=== PATIENT | female | born 1940 | race Caucasian/White ===

== ENCOUNTER → 2020-06-24 13:33 | Outpatient (CLI) | payer MEDICARE, SELFPAY ==
[2020-06-25 20:37] LABS: COVID19 Sendout Not Detected (Not Detect)
== END ==
PROVIDERS: Visit Provider Nurse Practitioner
DX: Z11.59 Encounter for screening for other viral diseases (principal)
CPT/HCPCS: 87635

== ENCOUNTER 2020-06-27 13:25 | Day surgery (SDC) | payer MEDICARE, SELFPAY ==
[2020-06-13 13:46] VITALS: BMI 26.7
[2020-06-27] VITALS (13 sets, daily range): BP systolic 105–175; BP diastolic 38–89; PULSE 73–89; RESP 14–20; TEMP 36–36.9; O2SAT 91–97; BMI 26.4
--- NOTE | 2020-06-27 | DI.RAD.S_ITS ---
PROCEDURE: XR KNEE LT 1TO2V INDICATIONS: LEFT TOTAL KNEE TECHNIQUE: Two views of the knee acquired. COMPARISON: [facility] LUCITA Alvarado, XR KNEE ARTHRITIC SERIES LT, 10/25/2019, 16:22. FINDINGS: Bones: Patient is status post knee joint arthroplasty. Hardware components are in expected positions. Visualized bony structures are intact. Soft tissues: Overlying postoperative changes are noted. IMPRESSION: 1. Expected postsurgical changes status post left knee arthroplasty. Dictated by: Grayson Washington M.D. on 06/27/2020 at 17:53 Approved by: Grayson Washington M.D. on 06/27/2020 at 17:53
[2020-06-27] MEDS: ACETAMINOPHEN 325 MG TABLET 975 MG PO (13:55)
[2020-06-27] MEDS: CELECOXIB 200 MG CAPSULE PO (13:56)
[2020-06-27] MEDS: GABAPENTIN 600 MG TABLET PO (13:56)
[2020-06-27] MEDS: LACTATED RINGERS 1,000 ML 42 ML IV (14:17)
--- NOTE | 2020-06-27 15:02 | P.OP_ITS ---
Operative Date/Time/Diagnoses Date of procedure: 06/27/20 Time of procedure: 17:02 Pre-op diagnosis: Left knee arthritis Post-op diagnosis: same Procedure & Clinicians Procedure: Left total knee arthroplasty Same procedure as scheduled: Yes Indications: The patient presents today for total knee arthroplasty after failure of conservative treatment. The nature of the procedure including the risks and benefits, alternatives, postoperative course and expected outcome were discussed and all questions answered. Consent was obtained. Operative site confirmed and marked. Surgeon: Grayson Carter Drying And Winding Supervisor: Ayaz Hayes Anesthesia Type: General, Spinal and Local Operative Notes Closure Type: primary Specimen(s): none sent Prosthetic devices, grafts, tissues, transplants, or devices: [facility] BCS: 4 femoral component, 3 tibial component, 9 mm BCS polyethylene tray and 32 x 9 mm round patella Applied: implant(s) Estimated Blood Loss (mL): 5 Tourniquet time (min): 46 Procedure in detail: The patient was taken to the operative suite and placed under anesthesia. The patient was given prophylactic antibiotics prior to surgery. The patient was also given tranexamic acid, 1 g, just prior to surgery for postoperative hemostasis. The lateral knee was prepped and the joint injected with 20 mL of 1% Lidocaine with epinephrine. The knee was then prepped and draped in usual sterile fashion. The leg was exsanguinated with an Esmarch dressing and the tourniquet raised to 250 torr. A 15 cm anterior incision was made. Next a medial trivector arthrotomy was made. The extensor mechanism was marked to ensure accurate repair. Initial exposing dissection was carried out medially and laterally. The knee was then flexed and the intramedullary femoral guide jasmin placed. The distal femoral cut was made in 6? of valgus at the +0 position. The femoral size was measured and the appropriate cutting block was then placed and the anterior, posterior and chamfer cuts made. The intramedullary tibial alignment jasmin was then placed. The guide was set to remove approximately 10 mm from the less affected medial side. The proximal tibial cut was then made with an oscillating saw. All meniscus and bony debris was then removed. Posterior femoral osteophytes removed with a curved osteotome. Flexion extension gaps were checked. There was still some mild tightness laterally. This was corrected releasing the lateral capsule in a pie crust technique with a 15 blade. The soft tissues were then injected with a combination of 20 mL of half percent Marcaine with epinephrine and 20 mL of Exparel. The trial components were then placed. The knee was then extended and the patellar thickness was measured and a cut made removing approximately 9 mm of bone. The patella was then sized and drilled. Some excess lateral bone was excised and the patellofemoral ligament released. The knee went into full extension and flexion beyond 130?. There was excellent medial-lateral balance throughout motion. Patellar tracking was excellent. The trial components were removed and the knee was cleansed with Pulsavac irrigation and dried. The final components were cemented with high viscosity vacuum mixed bone cement with antibiotics. The joint was filled with a dilute Betadine solution. The knee was held in extension and the patellar clamped until the cement was adequately cured. The knee was then irrigated. The extensor mechanism was closed with 5 interrupted #1 Vicryl sutures and a running Quill suture at approximately 90 degrees of flexion. The joint was then injected with a combination of 1 g of tranexamic acid and 20 mL of quarter percent Marcaine with epinephrine. The subcutaneous tissue was closed with 2 0 Vicryl. The skin was closed with absorbable subcuticular sutures and surgical adhesive. An Aquacel dressing and Wilner wrap were then applied. The patient tolerated the procedure well and was returned to recovery room in good condition. Complications: none Post-operative Condition: stable Disposition: PACU Plan for aftercare: [facility] Protocol.
--- NOTE | 2020-06-27 15:02 | PM.PREOP ---
Pre-operative Note COVID-19 COVID-19 status: Negative Result date/Date tested (Pos, Neg/Pending): 06/24/20 Interval Note History & Physical reviewed/Exam performed by Physician: Yes Changes to H&P: No
[2020-06-27] MEDS: CEFAZOLIN 2 GM/100 ML FROZ.PIGGY IV (15:55)
[2020-06-27] MEDS: LIDOCAINE 1% W/EPI 20 ML INJ (16:01)
[2020-06-27] MEDS: TRANEXAMIC ACID 1,000 MG VIAL 1000 MG IV (16:01)
--- NOTE | 2020-06-27 16:15 | SUR.OPER ---
Supine on padded OR bed. Pillow under head, arms secured on padded armboards <90 degree abduction. Safety belt across torso. Non-operative leg secured with tape over blanket over lower leg. Operative leg secured in DeMayo/Lane positioner. Foam padded brace at thigh of operative leg.
[2020-06-27] MEDS: BUPIVACAINE 0.25% W/ EPI (PF) 40 ML, BUPIVACAINE LIPOSOME 266 MG, SODIUM CHLORIDE 0.9% ... INJ (16:28)
[2020-06-27] MEDS: BUPIVACAINE 0.25% W/ EPI (PF) 20 ML, TRANEXAMIC ACID 1,000 MG, SODIUM CHLORIDE 0.9% 10 ML INJ (16:29)
[2020-06-27] MEDS: SODIUM CHLORIDE IRRIG SOLUTION 250 ML, POVIDONE-IODINE SPONGE STICKS 1 APPLIC IRR (16:31)
--- NOTE | 2020-06-27 17:55 | SUR.PHASEI ---
Patient tolerating po. Denies pain. Dermatones at thigh level.
[2020-06-27] MEDS: LACTATED RINGERS 1,000 ML 100 ML IV (18:44)
--- NOTE | 2020-06-27 20:02 | PC.NURSE ---
Addendum entered by Nga Metcalf R.N. 06/27/20 21:48: Pt reports sensation increasing to LLE. Able to stand and ambulate better with this toileting upon commode than previously. Medicated for pain 2/10 to LLE. Ice to site upon return to bed. No change in neurovascular status this shift. Original Note: 1820 Pt to room 203 wide awake and conversant from PACU. Denies pain to LLE and denies nausea. Pt's daughter meets pt in room. Pt denies sensation to BL LE's, but is able to wiggle toes R > L. Equally warm and pink extremities with palpable pedal pulses BL. BL calf scd's in place. Wilner wrap to left knee is dry and intact with ice to site. Up to commode with two staff members to assist as pt has little sensation to LLE. Able to void.
[2020-06-27] MEDS: ASPIRIN EC 81 MG TABLET PO (20:49)
[2020-06-27] MEDS: IBUPROFEN 400 MG TABLET PO (20:49)
[2020-06-27] MEDS: DOCUSATE 100 MG CAPSULE PO (20:49)
[2020-06-27] MEDS: GABAPENTIN 300 MG CAPSULE PO (20:49)
[2020-06-27] MEDS: OXYCODONE IR 5 MG TABLET PO ×2 (20:50→23:22)
[2020-06-27] MEDS: ACETAMINOPHEN 325 MG TABLET 650 MG PO (20:50)
[2020-06-27] MEDS: ATORVASTATIN 20 MG TABLET 40 MG PO (20:50)
[2020-06-28] MEDS: IBUPROFEN 400 MG TABLET PO ×3 (00:09→08:05)
[2020-06-28] MEDS: CEFAZOLIN 2 GM/100 ML FROZ.PIGGY IV ×2 (00:09→08:04)
[2020-06-28 05:27] VITALS: BP 141/83; PULSE 69; RESP 16; TEMP 36.7; O2SAT 93
[2020-06-28 06:10] LABS: Hematocrit 34.3 % (36-46); Hemoglobin 11.7 g/dL (12.0-16.0)
--- NOTE | 2020-06-28 06:41 | PM.PNPO.1 ---
Subjective Subjective Date Patient Seen: 06/28/20 Time Patient Seen: 07:10 Interval history: The patient is progressing well. Pain is well controlled. Feels ready for discharge today. Exam Vital Signs (past 8 hours): - 06/27/20 23:00 06/28/20 05:27 Temperature 98.4 F 98.0 F Pulse Rate 83 69 Respiratory Rate 16 16 Blood Pressure 157/77 H 141/83 H Pulse Oximetry 94 93 Oxygen Delivery Method Room Air Oxygen Flow Rate 0 Narrative Exam Narrative: The dressing is intact. There is expected swelling. The leg is neurovascularly intact. Objective Labs Result Diagrams: 06/28/20 05:55 Labs: Laboratory Results - last 24 hr 06/28/20 05:55 Hgb 11.7 L Hct 34.3 L Assessment & Plan Post-op Postoperative Procedures: Procedures Operation Date: 06/27/20 14:45 Actual Procedures Side Surgeon p Total Knee Arthroplasty Left Grayson Carter MD Postoperative day: 1 Postoperative plan narrative: The patient is progressing as expected postop day 1 total knee arthroplasty. Will discharge to home today. [facility] Protocol. Daily knee range of motion exercises at home. Will start physical therapy within the next week. May leave dressing on for 7-14 days if intact. May shower over dressing. Follow up in 2 weeks. Time Spent With Patient Time with patient: less than 15 minutes
[2020-06-28 07:00] VITALS: BP 125/81; PULSE 67; RESP 18; TEMP 36.2; O2SAT 92
[2020-06-28] MEDS: GABAPENTIN 400 MG CAPSULE 800 MG PO (08:04)
[2020-06-28] MEDS: ACETAMINOPHEN 325 MG TABLET 650 MG PO (08:04)
[2020-06-28] MEDS: PANTOPRAZOLE 20 MG TABLET PO (08:05)
[2020-06-28] MEDS: DOCUSATE 100 MG CAPSULE PO (08:05)
[2020-06-28] MEDS: LOSARTAN 50 MG TABLET PO (08:05)
[2020-06-28] MEDS: ASPIRIN EC 81 MG TABLET PO (08:05)
--- NOTE | 2020-06-28 08:50 | PT.IIE ---
Current Diagnoses Unilateral primary osteoarthritis, left knee (06/27/20) Surgery Performed Operation Date: 06/27/20 14:45 Actual Procedures p Total Knee Arthroplasty(Left) - Grayson Carter MD Surgical History (Last Updated 06/13/20 @ 14:18 by Thania Alicea, RN) History of bilateral tubal ligation (Acute) History of hysterectomy (Acute) Hx of bilateral cataract extraction (Acute) Hx of hammer toe correction (Acute 1994) S/P TAVR (transcatheter aortic valve replacement) (Acute 03/26/20) Medical History (Last Updated 06/13/20 @ 14:51 by Thania Alicea RN) Ankle fracture, right (Acute 06/03/18) Aortic valve stenosis (Acute) Difficulty balancing (Acute) Easy bruisability (Acute) Eczema (Acute) Exertional dyspnea (Acute) GERD (gastroesophageal reflux disease) (Acute) Hearing impaired (Acute) HLD (hyperlipidemia) (Acute) HTN (hypertension) (Acute) Lacunar stroke (Acute ~2017) Neuropathy (Acute) Skin cancer (Acute) Physical Therapy Inpatient Evaluation/Re-Eval M1 PT/OT-IP Prior Functional Status Start: 06/28/20 12:53 Freq: NEEDED Status: Active Protocol: Document 06/28/20 08:50 AB (Rec: 06/28/20 13:04 AB [email or web address]) Medical Review Prior Functional Status Medical History Reviewed Yes Communication able to make needs known Mobility and Gait pt stated that she is independent with all mobilities and ambualtion without AD Social History Household Members children Living Arrangements House Number of Floors (Floors) One Floor Number of Stairs To Enter/Railing? 1 step to enter Home Environment Standard Height Toilet,Walk in Shower Home Equipment Front Wheel Walker,Straight Cane,Shower Seat with Backrest ,Hand Held Shower,Grab Bars In Shower Additional Social History Comment pt will have her daughter to assist her at home M2 PT-IP Current Condition Start: 06/28/20 12:53 Freq: NEEDED Status: Active Protocol: Document 06/28/20 08:50 AB (Rec: 06/28/20 13:04 AB [email or web address]) Physical Therapy Current Condition Current Condition Evaluation Date 06/28/20 Treatment Diagnosis s/p L TKA; difficulty in walking Onset Date 06/27/20 Weight Bearing Status Allowed Weight Bearing Amount (enter % LLE: WBAT or #) (%) M3 PT-IP Subjective Start: 06/28/20 12:53 Freq: NEEDED Status: Active Protocol: Document 06/28/20 08:50 AB (Rec: 06/28/20 13:04 AB [email or web address]) Subjective Physical Therapy Visit Type Type Initial Evaluation Visit Start Time 08:50 Visit Stop Time 09:36 Total Visit Minutes 46 Number of FITNESS TRAINER Visits 0 Physical Therapy Visit Comments Patient Comments pt is agreeable to do PT Therapy Pain Assessment Pain When Pain Assessed At Rest Pain Present Pain Present Pain Reported Location Left Knee Intensity 6 Scale Used Numeric (0 - 10) Pain Management Techniques Apply Cold,Elevation, Modification of Treatment,Re- positioning,Timing of Activity with Medications M4 PT-IP Mobility and Gait Start: 06/28/20 12:53 Freq: NEEDED Status: Active Protocol: Document 06/28/20 08:50 AB (Rec: 06/28/20 13:04 AB [email or web address]) PT-Bed Mobility Assessment Supine to Sit Supine to Sit Independent Sit to Supine Sit to Supine Independent Scooting Scooting to Edge of Bed Standby Assistance PT-Transfer Assessment Sit to and From Stand Sit to and from Stand Standby Assistance,Contact Guard Assistance,1 Person Assistance,Use of Upper Extremities Equipment Transfer Assistive Device Gait Belt,Front Wheeled Walker Orthotic/Prosthetic Devices or Brace: No Transfers Transfer Destination Bed,Chair Transfer Technique Stand Step Pivot Transfer Ability Level of Assist Standby Assistance,Contact Guard Assistance Comments Mobility Comments pt found standing by the sink with NAC. pt sat on chair and PT conducted. pt completed sit to stand from chair CGA and completed transfer using FWW to bed CGA. completed bed mobility supine <>sit independent. pt completed sit to stand from bed SBA to CGA. educated on safety and techniques and completed 4 reps of sit to stand from EOB and was able to complete with just SBA towards end of repetitions. ambulated in the hallway ~ 50 ft using FWW SBA to occasional CGA. completed stair climbing. pt ambulated back to her room. agreed to stay up on chair. positioned on chair. ice pack provided. call light and table placed within reach. Gait Assessment Gait Gait Assistance Required: Standby Assistance,Contact Guard Assist Distance (Feet) 50 Assistive Devices Assistive Device Gait Belt,Front Wheeled Walker Orthotic/Prosthetic Devices or Brace: No Gait Deviations General Gait Pattern Antalgic,Decreased Stride Length,Decreased Feet Clearance Factors Limiting Gait Function Factors Limiting Gait Function Decreased Activity Tolerance, Decreased Strength,Difficulty Following Directions,Limited Range of Motion,Pain,Poor Balance Comments Gait Comments pls refer to mobility section for details Stair Climbing Assessment Evaluation Level of Assist On Stairs Contact Guard Assistance,1 Person Assistance Devices Stair Climbing Assistive Devices Front Wheel Walker Technique/Endurance Stair Climbing Direction Ascend and Descend Stair Climbing Technique Step to Step Number of Steps Climbed 1 Query Text: Stair Climbing Set # Repetitions (reps) 2 Comments Stair Climbing Comments required cues on first set but able to perform without cues on 2nd set PT-Balance Assessment Sitting Balance and Reactions Static Sitting Balance Ability Good Dynamic Sitting Balance Ability Good Standing Balance and Reactions Static Standing Balance Ability Fair Dynamic Standing Balance Ability Fair Device Used FWW M5 PT-IP Objective Assessments Start: 06/28/20 12:53 Freq: NEEDED Status: Active Protocol: Document 06/28/20 08:50 AB (Rec: 06/28/20 13:04 AB [email or web address]) Orientation Orientation/Cognition Level of Alertness Alert Orientation Name,Place,Situation Language Function Ability No Deficits Noted Safety Awareness Understands Safety Issues Memory Description No Deficits Noted Strength Lower Extremity Strength Assessment Left Impaired Hip 4-/5 Knee 4-/5 Ankle DF: 2-/5 Comments Strength Comments pt has L foot drop: informed pt regarding informing ortho doctor and outpt PT regarding foot drop and possible AFO. pt understood Coordination Assessment Gross Coordination Gross Coordination WNL Sensation Assessment Sensation Gross Sensation Right LE Impaired,Left LE Impaired Light Touch Impaired Proprioception (Position) Impaired Sensation Description Numbness Comments Sensation Comments stated decrease sensation on B feet due to neuropathy Muscle Tone Muscle Tone WNL Yes M6 PT-IP Treatment Start: 06/28/20 12:53 Freq: NEEDED Status: Active Protocol: Document 06/28/20 08:50 AB (Rec: 06/28/20 13:04 AB [email or web address]) Physical Therapy Treatment Exercises Exercises Heel Slides Education Education Provided Precautions,Weight Bearing Status,Post-Op Packet,Safety M7 PT-IP Assessment and Plan Start: 06/28/20 12:53 Freq: NEEDED Status: Active Protocol: Document 06/28/20 08:50 AB (Rec: 06/28/20 13:04 AB [email or web address]) PT Summary Assessment and Plan Potential Rehabilitation Potential Good Status of Condition at Evaluation Stable Summary Impairments Pain,ROM,Strength,Balance, Coordination,Sensation,Bed Mobility,Transfers,Gait, Activity Tolerance Assessment Summary pt requiring SBA to CGA with mobility and plans to go home with her daughter to assist her. pt also stated that she is set up for outpt PT. pt may go home when stable. Goals Transfer Goal Independent,Front Wheeled Walker Gait Goal Independent,Front Wheel Walker Gait Distance 200 Other Goals up/down 1 steps using FWW mod I Days to Meet Goals 3 Frequency of Treatment Frequency Of Treatment Twice a Day Treatment Plan Physical Therapy Treatment Plan Bed Mobility Training,Transfer Training,Gait Training, Therapeutic Exercise,Balance Retraining,Post Op Education, Discharge Planning,Hot or Cold Pack,Neuromuscular Re-ed, Coordination Retraining,Manual Therapy Recommendations To Nursing Amount of Assist Needed 1 Person Assist Discharge Recommendations PT Discharge Recommendations Home with Assistance, Outpatient PT Transportation Needs at Discharge Private Vehicle
--- NOTE | 2020-06-28 12:56 | CM.IDA ---
Initial DCP Assessment Note Pt is a 79 yo female, resident of [facility], now POD#1 from Left knee surgery w/ Dr Carter PCP: Moose Schmitt Payer: CHONG/BRITTANY Reviewed chart, pt discussed in multidisciplinary rounds this morning. Therapy has cleared pt for return home w/family to assist and pt has planned for home, DC order from Ortho [facility] has already been initiated this morning. No needs expected from DC planning team although will remain available in case this changes today. SALVADOR Rogers
== END 2020-06-28 10:40 | disposition home or self-care (01) ==
LOC: OR 13:27 → AC 13:34
PROVIDERS: PCP Internal Medicine; Referring Provider Orthopaedic Surgery; Visit Provider Orthopaedic Surgery
PROC: 0SRD0JZ Replacement of Left Knee Joint with Synthetic Substitute, Open Approach (ICD-10-PCS; CPT 27447; principal; 2020-06-27 14:45)
DX: M17.12 Unilateral primary osteoarthritis, left knee (principal); I10 Essential (primary) hypertension; Z86.73 Personal history of transient ischemic attack (TIA), and cerebral infarction without residual deficits; K21.9 Gastro-esophageal reflux disease without esophagitis
CPT/HCPCS: 27447; 36415; 73560; 85014; 85018; 97116; 97161; C1776; C9290; J0690; J1100; J2250; J2405; J2704; J3010